=== PATIENT | male | born 1990 | race Two or more races ===

== ENCOUNTER 2021-02-06 13:27 | Outpatient (CLI) | payer OTHER | END 2021-02-06 13:32 | disposition home or self-care (01) | LOC: RAD 13:27 | PROVIDERS: ATTEND Obstetrics & Gynecology | DX: M79.642 Pain in left hand (principal) ==

== ENCOUNTER 2024-08-13 07:16 | Outpatient (CLI) | payer OTHER | END 2024-08-13 14:35 | disposition home or self-care (01) | LOC: TOM 07:16 | PROVIDERS: ATTEND Obstetrics & Gynecology | DX: C71.9 Malignant neoplasm of brain, unspecified (principal) ==

== ENCOUNTER 2024-09-22 07:44 | Outpatient (CLI) | payer OTHER | END 2024-09-22 07:49 | disposition home or self-care (01) | LOC: TOM 07:44 | DX: R59.0 Localized enlarged lymph nodes (principal); R05.1 Acute cough ==